=== PATIENT | female | born 1970 | race Caucasian/White ===

== ENCOUNTER 2018-07-10 06:10 | Day surgery (SDC) | payer BC ==
[2018-07-09 09:44] LABS: BASOPHILS # (AUTO) 0.1 K/uL (0.00-0.22); BASOPHILS % (AUTO) 0.9 % (0.0-2.0); EOSINOPHILS # (AUTO) 0.2 K/uL (0-0.4); EOSINOPHILS % (AUTO) 3.4 % (0.0-4.0); HEMATOCRIT 37.1 % (36-48); HEMOGLOBIN 12.2 g/dL (12.0-16.0); LYMPHOCYTES # (AUTO) 1.7 K/uL (2.5-16.5); LYMPHOCYTES % (AUTO) 24.9 % (20.5-51.1); MEAN CORPUSCULAR HEMOGLOBIN 28 pg (27-31); MEAN CORPUSCULAR HGB CONC 33 g/dL (33-37); MEAN CORPUSCULAR VOLUME 83.6 fL (80-94); MONOCYTES # (AUTO) 0.4 K/uL (0.8-1.0); MONOCYTES % (AUTO) 5.7 % (1.7-9.3); NEUTROPHILS # (AUTO) 4.4 K/uL (1.8-7.7); NEUTROPHILS % (AUTO) 65.1 % (42.2-75.2); PLATELET COUNT (AUTO) 185 K/uL (140-450); RED BLOOD CELL COUNT(AUTO) 4.43 MIL/uL (4.20-5.40); RED CELL DISTRIBUTION WIDTH 13.6 % (11.6-13.7); WHITE BLOOD COUNT (AUTO) 6.8 K/uL (4.8-10.8)
[2018-07-09 10:02] LABS: ALBUMIN 3.4 g/dL (3.4-5.0); ANION GAP 8.9 (8-16); CARBON DIOXIDE 28.8 mmol/L (21-32); CREATININE 0.7 mg/dL (0.6-1.3); POTASSIUM 3.7 mmol/L (3.5-5.1); TOTAL BILIRUBIN 0.2 mg/dL (0.0-1.0)
[~2018-07-10] VITALS: Ht 144.8 cm; Wt 74.8 kg
[2018-07-10] MEDS ORDERED: CLINDAMYCIN PHOS 600MG/D5W PM 50 ML IV SCH (07:10)
[2018-07-10] MEDS ORDERED: BUPIVACAINE-MPF/EPI 0.5% 30 ML VIAL INJ ONE (07:26)
[2018-07-10] MEDS ORDERED: ONDANSETRON 4 MG/2 ML VIAL ONE (07:38)
[2018-07-10] MEDS ORDERED: PROPOFOL 200 MG/20 ML VIAL IV ONE (07:38)
[2018-07-10] MEDS ORDERED: DEXAMETHASONE 4 MG/ML VIAL ONE (07:38)
[2018-07-10] MEDS ORDERED: SEVOFLURANE 250 ML BTL INH ONE (07:38)
[2018-07-10] MEDS ORDERED: KETOROLAC 30 MG/ML VIAL ONE (07:38)
[2018-07-10] MEDS ORDERED: fentaNYL 0.05 MG/ML VIAL ONE (07:47)
[2018-07-10] MEDS ORDERED: HYDROmorphone PFS 2 MG/ML SYR ONE (07:47)
[2018-07-10] MEDS ORDERED: IBUPROFEN 800 MG TAB PO PRN (07:55)
[2018-07-10] MEDS ORDERED: ONDANSETRON 4 MG/2 ML VIAL IVP PRN (07:55)
[2018-07-10] MEDS ORDERED: ACETAMINOPHEN/CODEINE 300/30MG 1 TAB PO PRN (07:55)
[2018-07-10] MEDS ORDERED: MORPHINE SULFATE 4 MG/ML SYR IM/IVP PRN (07:55)
== END 2018-07-10 10:50 | disposition home or self-care (01) ==
LOC: MDS 06:10 → MMU 06:11 → MDS 10:50
PROVIDERS: ATTEND Obstetrics & Gynecology
DX: Z30.2 Encounter for sterilization (principal); J45.909 Unspecified asthma, uncomplicated; E66.3 Overweight; Z68.35 Body mass index [BMI] 35.0-35.9, adult; Z98.890 Other specified postprocedural states; Z88.0 Allergy status to penicillin; Z90.49 Acquired absence of other specified parts of digestive tract
CPT/HCPCS: 36415; 58700; 71045; 80053; 84702; 85025; J1100; J1170; J1885; J2405; J2704; J3010; J3490; J7120